=== PATIENT | male | born 1990 | race Caucasian/White ===

== ENCOUNTER 2016-09-17 03:34 | Emergency (ER) | payer OTHER ==
[~2016-09-17] VITALS: Ht 175.3 cm; Wt 84.0 kg
[2016-09-17 03:38] VITALS: Ht 175.3 cm; Wt 84.0 kg
[2016-09-17] MEDS ORDERED: CEFTRIAXONE 250 MG INJ IM ONE (04:30)
[2016-09-17 05:03] LABS: ADD UMIC NO; URINE BILIRUBIN (Dip) NEGATIVE (NEGATIVE); URINE BLOOD (Dip) NEGATIVE (NEGATIVE); URINE COLOR LT. YELLOW (YELLOW); URINE GLUCOSE (Dip) NEGATIVE (NEGATIVE); URINE KETONES (Dip) NEGATIVE (NEGATIVE); URINE LEUKOCYTE ESTERASE (Dip) NEGATIVE (NEGATIVE); URINE NITRITE (Dip) NEGATIVE (NEGATIVE); URINE TOTAL PROTEIN (Dip) NEGATIVE (NEGATIVE); URINE UROBILINOGEN (Dip) 0.2 E.U./dL (0.1-1.0)
[2016-09-17] MEDS ORDERED: AMO500 PO (05:19)
--- NOTE | 2016-09-17 05:27 | ERD ---
ER Documentation Chief Complaint Date/Time DATE: 09/17/16 TIME: 05:22 Chief Complaint throat pain/painful swallowing x 2 days HPI 25-year-old male with a past medical history of mono presents to the ED complaining of sore throat that started 2 days ago. Reports that it is painful to swallow however he still able to swallow and tolerate oral intake. States that he has been gargling water and baking soda. States that the pain is sharp and rates it a 10 out of 10. Reports that he has been taking Advil 800 mg with relief of his pain. Denies any sick contacts. Reports that he feels like he has a fever. Denies any abdominal pain, nausea, vomiting, diarrhea, rashes, shortness of breath, wheezing, cough. States that he is also sexually active and has had unprotected intercourse and is concerned about STDs. States that he has one sexual partner. Reports that he feels like it major when he urinates. Denies any urgency, frequency, flank pain, hematuria. ROS All systems reviewed and are negative except as per history of present illness. Medications Home Meds Active Scripts Amoxicillin* (Amoxicillin*) 500 Mg Cap, 500 MG PO TID for 10 Days, CAP Prov:QUINTON RAYMUNDO PA-C 09/17/16 Allergies Allergies: Coded Allergies: No Known Drug Allergies (Verified Allergy, Unknown, 09/17/16) PMhx/Soc Medical and Surgical Hx: pt denies Medical Hx History of Surgery: Yes (L KNEE 2007) Anesthesia Reaction: No Hx Neurological Disorder: No Hx Respiratory Disorders: No Hx Cardiac Disorders: No Hx Psychiatric Problems: No Hx Miscellaneous Medical Probl: No Hx Alcohol Use: Yes Hx Substance Use: Yes (marijuana) Hx Tobacco Use: No Smoking Status: Never smoker Physical Exam Vitals Vital Signs Date Time Temp Pulse Resp B/P Pulse Ox O2 Delivery O2 Flow Rate FiO2 09/17/16 03:38 97.0 91 20 127/72 100 Physical Exam Const: Fly-wgy-ydfylyyks, well-nourished. In no acute distress. Head: Atraumatic, normocephalic Eyes: Normal Conjunctiva without injection. No purulent discharge. ENT: Normal external ear, nose. Moist oropharynx without tonsillar exudates. Non -erythematous pharynx. Uvula midline. No drooling. No trismus. Neck: No cervical midline tenderness. Full range of motion. No meningismus. No cervical lymphadenopathy. No JVD. Resp: Clear to auscultation bilaterally. No wheezing, rhonchi, rales, or crackles. No accessory muscle use. No retractions. Cardio: Regular rate and rhythm. No murmurs, rubs or gallops. Abd: Soft, non distended. Normal bowel sounds. No palpable masses. No rebound tenderness. No guarding. Negative McBurney's point. Negative psoas sign. Negative obturator sign. : Uncircumcised penis. No paraphimosis. No phimosis. No hernias. No tenderness to palpation of the scrotum. No erythema, edema, penile discharge noted. Skin: No petechiae or rashes Back: No midline tenderness. No CVA tenderness. Ext: No cyanosis, or edema. Neur: Awake and alert. Normal gait. Normal coordination. Psych: Normal Mood and Affect Results 24 hrs Laboratory Tests Test 09/17/16 04:15 Urine Color LT. YELLOW Urine Clarity CLEAR Urine pH 6.0 Urine Specific [place] 1.015 Urine Ketones NEGATIVE Urine Nitrite NEGATIVE Urine Bilirubin NEGATIVE Urine Urobilinogen 0.2 E.U./dL Urine Leukocyte Esterase NEGATIVE Urine Hemoglobin NEGATIVE Urine Glucose NEGATIVE% Urine Total Protein NEGATIVE Current Medications Medications (Trade) Dose Ordered Sig/Arnaud Route PRN Reason Start Time Stop Time Status Last Admin Dose Admin Ceftriaxone Sodium (Rocephin) 250 mg ONCE ONCE IM 09/17/16 04:30 09/17/16 04:31 DC 09/17/16 04:23 Azithromycin (Zithromax) 1,000 mg ONCE ONCE PO 09/17/16 05:30 09/17/16 05:31 09/17/16 05:15 Procedures/MDM This is a 25-year-old male with a past medical history of mononucleosis presents to the ED complaining of sore throat that started 2 days ago. Patient is afebrile and nontoxic-appearing. Patient has normal vital signs. Patient's physical exam is consistent with presumed strep pharyngitis. Based on [employer]'s Criteria, patient has reported fever at home, tonsillar exudates, no cough. Patient is appropriate for outpatient antibiotics. Patient's physical exam include lungs which were clear to auscultation and a normal pulse oximetry. Bilateral ears pearly marquez. No tenderness to palpation of tragus or mastoid. Low suspicion for mastoiditis, otitis externa, otitis media. Patient is speaking in full sentences. There is a low suspicion for pneumonia, epiglottitis , croup, sinusitis, peritonsillar abscess, hands foot mouth disease, Jose's angina, retropharyngeal abscess, meningitis, sepsis, acute abdomen or other emergent conditions. Patient was also concerned about mono, I instructed patient that he should avoid playing sports for the next 4-6 weeks to avoid traumatic splenic rupture. A urinalysis, chlamydia and gonorrhea test, urine culture was also ordered to further evaluate patient. Patient was treated here in the ED with ceftriaxone 250 mg IM, Zithromax 1 g here in the ED for phylactic gonorrhea and Chlamydia. Urinalysis showed no leukocyte esterase, hematuria, nitrite. Low suspicion for urinary tract infection, pyelonephritis, appendicitis, testicular torsion, bowel obstruction, or other emergent conditions. Discharge medications: Amoxicillin Follow up with primary care physician in 1-2 days. Instructed patient to return to the ED sooner for any worsening symptoms. Patient's questions were answered. Patient understood and agreed with discharge plan. Patient discharged stable. Departure Diagnosis: Primary Impression: Pharyngitis Pharyngitis/tonsillitis etiology: unspecified etiology Qualified Code: J02.9 - Pharyngitis, unspecified etiology Additional Impression: Exposure to STD Condition: Stable Patient Instructions: If You Think You Have an STD, Pharyngitis, Strep ( Presumed) Referrals: [facility] YOU HAVE RECEIVED A MEDICAL SCREENING EXAM AND THE RESULTS INDICATE THAT YOU DO NOT HAVE A CONDITION THAT REQUIRES URGENT TREATMENT IN THE EMERGENCY DEPARTMENT. FURTHER EVALUATION AND TREATMENT OF YOUR CONDITION CAN WAIT UNTIL YOU ARE SEEN IN YOUR DOCTORS OFFICE WITHIN THE NEXT 1-2 DAYS. IT IS YOUR RESPONSIBILITY TO MAKE AN APPOINTMENT FOR FOLOW-UP CARE. IF YOU HAVE A PRIMARY DOCTOR --you should call your primary doctor and schedule an appointment IF YOU DO NOT HAVE A PRIMARY DOCTOR YOU CAN CALL OUR PHYSICIAN REFERRAL HOTLINE AT IF YOU CAN NOT AFFORD TO SEE A PHYSICIAN YOU CAN CHOSE FROM THE FOLLOWING [facility] [address] [facility]. [facility] [address] [facility]. [facility] [address] [facility] [facility] [address] [facility]. [facility] [address] [facility]. [facility]. [address] [facility]. [facility] YOU HAVE RECEIVED A MEDICAL SCREENING EXAM AND THE RESULTS INDICATE THAT YOU DO NOT HAVE A CONDITION THAT REQUIRES URGENT TREATMENT IN THE EMERGENCY DEPARTMENT. FURTHER EVALUATION AND TREATMENT OF YOUR CONDITION CAN WAIT UNTIL YOU ARE SEEN IN YOUR DOCTORS OFFICE WITHIN THE NEXT 1-2 DAYS. IT IS YOUR RESPONSIBILITY TO MAKE AN APPOINTMENT FOR FOLOW-UP CARE. IF YOU HAVE A PRIMARY DOCTOR --you should call your primary doctor and schedule and appointment IF YOU DO NOT HAVE A PRIMARY DOCTOR YOU CAN CALL OUR PHYSICIAN REFERRAL HOTLINE AT . IF YOU CAN NOT AFFORD TO SEE A PHYSICIAN YOU CAN CHOSE FROM THE FOLLOWING [facility] INSTITUTIONS: [facility] [address] [place] [address] [facility] [address] [place] [address] [facility] + [facility] [address] [place] [address] [facility] URGENT CARE/SPECIALTIES Additional Instructions: FOLLOW UP WITH YOUR PRIMARY CARE PHYSICIAN in 1-2 days. Return to this facility if you are not improving as expected. QUINTON RAYMUNDO PA-C Sep 17, 2016 05:27
[2016-09-17] MEDS ORDERED: AZITHROMYCIN 250 MG TAB PO ONE (05:30)
[2016-09-17 05:31] VITALS: BP 122/74; PULSE 90; RESP 20; TEMP 97
== END 2016-09-17 05:31 | disposition home or self-care (01) ==
LOC: FTE 03:34
DX: J02.9 Acute pharyngitis, unspecified (principal); R50.9 Fever, unspecified; Z20.2 Contact with and (suspected) exposure to infections with a predominantly sexual mode of transmission
CPT/HCPCS: 81003; 87086; 87591; 96372; J0696; Z7502; Z7610

== ENCOUNTER 2017-01-14 13:32 | Emergency (ER) | payer OTHER ==
[~2017-01-14] VITALS: Ht 177.8 cm; Wt 85.5 kg
[~2017-01-14 13:32] MED LIST: AMO500 PO
[2017-01-14 13:53] VITALS: Ht 177.8 cm; Wt 85.5 kg
[2017-01-14] MEDS ORDERED: IBUPROFEN 600 MG TAB PO ONE (16:30)
--- NOTE | 2017-01-14 16:47 | RADRPT ---
PROCEDURE: US Lower extremity Venous. CLINICAL INDICATION: Right leg edema TECHNIQUE: Multiple sonographic images of the right lower extremity deep venous system was obtaine d utilizing grayscale, color-flow, compressive sonography and doppler imaging with augmentation. Th e images were reviewed on a PACS workstation. COMPARISON: None. FINDINGS: There is normal compressibility and flow within the right common femoral, femoral, posterior tibial, peroneal and popliteal veins. RPTAT: AA IMPRESSION: No sonographic evidence for deep venous thrombosis. .Jorge Gonsalez MD, MD Date Time Electronically viewed and signed by .Jorge Gonsalez MD, MD on 01/14/2017 16:47 .S/
--- NOTE | 2017-01-14 17:08 | ERD ---
ER Documentation Chief Complaint Date/Time DATE: 01/14/17 TIME: 17:04 Chief Complaint r leg pain hit a gymnastic bar 2 days ago, swelling and pain HPI This patient is a 26-year-old male presenting to the emergency department with complaints of right lower extremity pain which began suddenly yesterday after injury. The patient states she was doing gymnastics and hit his right lower extremity on a bar. Since then he has noticed increased swelling and bruising. He reports mild pain. He denies other injuries or symptoms currently. ROS All systems reviewed and are negative except as per history of present illness. Medications Home Meds Active Scripts Naproxen* (Naprosyn*) 500 Mg Tablet, 500 MG PO BID Y for PAIN AND/OR INFLAMMATION, #30 TAB Prov:ROSALINO FRANCOIS PA-C 01/14/17 Amoxicillin* (Amoxicillin*) 500 Mg Cap, 500 MG PO TID for 10 Days, CAP Prov:QUINTON RAYMUNDO PA-C 09/17/16 Allergies Allergies: Coded Allergies: No Known Drug Allergies (Verified Allergy, Unknown, 01/14/17) PMhx/Soc Medical and Surgical Hx: pt denies Medical Hx History of Surgery: Yes (L KNEE 2007) Anesthesia Reaction: No Hx Neurological Disorder: No Hx Respiratory Disorders: No Hx Cardiac Disorders: No Hx Psychiatric Problems: No Hx Miscellaneous Medical Probl: No Hx Alcohol Use: Yes (socially) Hx Substance Use: Yes (marijuana) Hx Tobacco Use: No Physical Exam Vitals Vital Signs Date Time Temp Pulse Resp B/P Pulse Ox O2 Delivery O2 Flow Rate FiO2 01/14/17 17:47 98.2 01/14/17 13:53 97.4 87 18 134/69 99 Physical Exam Const: Nontoxic, well-appearing male in no acute distress. Head: Atraumatic Eyes: Normal Conjunctiva ENT: Normal External Ears, Nose and Mouth. Neck: Full range of motion..~ No meningismus. Resp: Clear to auscultation bilaterally Cardio: Regular rate and rhythm, no murmurs Abd: Soft, non tender, non distended. Normal bowel sounds Skin: No petechiae or rashes Back: No midline or flank tenderness Ext: There is ecchymosis and edema noted to the right ankle. There is some tenderness palpation of the lateral portion of the right lower extremity just proximal to the right ankle. There is no calf tenderness to palpation. Neur: Awake and alert Psych: Normal Mood and Affect Results 24 hrs Current Medications Medications (Trade) Dose Ordered Sig/Arnaud Route PRN Reason Start Time Stop Time Status Last Admin Dose Admin Ibuprofen (Motrin) 600 mg ONCE ONCE PO 01/14/17 16:30 01/14/17 16:31 DC 01/14/17 17:06 [place] [address] Radiology Main Line: [phone] DIAGNOSTIC IMAGING REPORT Patient: ROSALINO VILLEGAS : 1990 Age: 26 Sex: M MR #: [id number] DOS: 01/14/17 0000 Ordering MD: ROSALINO FRANCOIS PA-C Location: [facility] Room/Bed: PROCEDURE: US Lower extremity Venous. CLINICAL INDICATION: Right leg edema TECHNIQUE: Multiple sonographic images of the right lower extremity deep venous system was obtained utilizing grayscale, color-flow, compressive sonography and doppler imaging with augmentation. The images were reviewed on a PACS workstation. COMPARISON: None. FINDINGS: There is normal compressibility and flow within the right common femoral, femoral, posterior tibial, peroneal and popliteal veins. RPTAT: AA IMPRESSION: No sonographic evidence for deep venous thrombosis. .Jorge Gonsalez MD, MD Date Time Electronically viewed and signed by .Jorge Gonsalez MD, MD on 01/14/2017 16: 47 .S/ CC: ROSALINO FRANCOIS PA-C 01/14/2017 6:00:04 PM Joce Martinez MD PROCEDURE: XR right tibia and fibula. CLINICAL INDICATION: Pain in the right lower leg. TECHNIQUE: 2 views of the right tibia and fibula. Frontal and lateral. COMPARISON: None available. FINDINGS: There is no acute fracture, dislocation, or other osteoarticular abnormality. The alignment is normal and the ankle mortise is intact. There is edema within the soft tissues overlying the right lateral malleolus. No radiopaque foreign body is identified. IMPRESSION: 1. Edema within the soft tissues overlying the right lateral malleolus with no underlying acute fracture or dislocation. Ligamentous injury is not excluded and can be further evaluated with MRI. 2. Otherwise unremarkable images of the right tibia and fibula. RPTAT: QQ PROCEDURE: XR Ankle. CLINICAL INDICATION: Pain at the lateral ankle joint. TECHNIQUE: 3 views of the right ankle were performed. COMPARISON: None available. FINDINGS: There is no acute fracture, dislocation, or other osteoarticular abnormality. The alignment is normal and the ankle mortise is intact. There is edema within the soft tissues overlying the lateral malleolus. No radiopaque foreign body is identified. IMPRESSION: Edema within the soft tissues overlying the lateral malleolus with no underlying acute fracture or dislocation. Ligamentous injury is not excluded and can be further evaluated with MRI. Procedures/MDM This patient is a 26-year-old male presenting to the emergency department with complaints of right lower extremity pain after injury on a gymnastics bar yesterday. Exam shows some ecchymosis and edema to the right ankle. There is some tenderness to palpation and limited range of motion of the right ankle. X- ray showed soft tissue swelling but no fracture. Venous Doppler of the right lower extremity showed no signs of deep venous thrombosis. All imaging studies were interpreted by the radiologist. The patient was informed of the results and he was told that ligamental or tendon injury is not excluded and that he would need a follow-up as an outpatient in case MRI is indicated. The patient had crutches and he had proper training on a previously. Kirit wrap applied and the patient was neurovascularly intact post application. Strict ER return precautions were discussed and close follow-up with primary care physician was advised. Departure Diagnosis: Primary Impression: Injury of right leg Encounter type: initial encounter Qualified Code: S89.91XA - Injury of right leg, initial encounter Condition: Fair Referrals: [facility] ROSALINO FRANCOIS PA-C Jan 14, 2017 17:08
--- NOTE | 2017-01-14 17:11 | RADRPT ---
AMENDMENT: 01/14/2017 6:00:04 PM Joce Martinez MD PROCEDURE: XR right tibia and fibula. CLINICAL INDICATION: Pain in the right lower leg. TECHNIQUE: 2 views of the right tibia and fibula. Frontal and lateral. COMPARISON: None available. FINDINGS: There is no acute fracture, dislocation, or other osteoarticular abnormality. The alignment is brittany l and the ankle mortise is intact. There is edema within the soft tissues overlying the right latera l malleolus. No radiopaque foreign body is identified. IMPRESSION: 1. Edema within the soft tissues overlying the right lateral malleolus with no underlying acute fra cture or dislocation. Ligamentous injury is not excluded and can be further evaluated with MRI. 2. Otherwise unremarkable images of the right tibia and fibula. RPTAT: QQ Patient Name: NELLY JERRY Report Date: 14-Jan-2017 17:11.00 Patient Date: 1990 Report Status: S Accession No.: [id number] Reason for study: #reason_for_study# [place] [address] Radiology Main Line: [phone] DIAGNOSTIC IMAGING REPORT Patient: ROSALINO VILLEGAS : 1990 Age: 26 Sex: M MR #: [id number] DOS: 01/14/17 0000 Ordering MD: ROSALINO FRANCOIS PA-C Location: [facility] Room/Bed: PROCEDURE: XR Ankle. CLINICAL INDICATION: Pain at the lateral ankle joint. TECHNIQUE: 3 views of the right ankle were performed. COMPARISON: None available. FINDINGS: There is no acute fracture, dislocation, or other osteoarticular abnormality. The alignment is normal and the ankle mortise is intact. There is edema within the soft tissues overlying the lateral malleolus. No radiopaque foreign body is identified. IMPRESSION: Edema within the soft tissues overlying the lateral malleolus with no underlying acute fracture or dislocation. Ligamentous injury is not excluded and can be further evaluated with MRI. RPTAT: GG .Franck Lugo MD, Date Time Electronically viewed and signed by .Franck Lugo MD, MD on 01/14/2017 17:11 .P/ CC: ROSALINO FRANCOIS PA-C Radiologist : .Joce Martinez MD, Date Time Electronically viewed and signed by .Joce Martinez MD, on 01/14/2017 18:00 .R/
[2017-01-14] MEDS ORDERED: NAPR-260 PO (17:18)
--- NOTE | 2017-01-14 17:34 | RADRPT ---
PROCEDURE: XR Ankle. CLINICAL INDICATION: Pain at the lateral ankle joint. TECHNIQUE: 3 views of the right ankle were performed. COMPARISON: None available. FINDINGS: There is no acute fracture, dislocation, or other osteoarticular abnormality. The alignment is norm al and the ankle mortise is intact. There is edema within the soft tissues overlying the lateral ma lleolus. No radiopaque foreign body is identified. IMPRESSION: Edema within the soft tissues overlying the lateral malleolus with no underlying acute fracture or d islocation. Ligamentous injury is not excluded and can be further evaluated with MRI. RPTAT: GG .Franck Lugo MD, MD Date Time Electronically viewed and signed by .Franck Lugo MD, on 01/14/2017 17:11 .P/
[2017-01-14 17:47] VITALS: TEMP 98.2
== END 2017-01-14 17:49 | disposition home or self-care (01) ==
LOC: FTE 13:32
DX: S89.91XA Unspecified injury of right lower leg, initial encounter (principal); W22.8XXA Striking against or struck by other objects, initial encounter; Y92.9 Unspecified place or not applicable
CPT/HCPCS: 73590; 73610; 93971; Z7502; Z7610

== ENCOUNTER 2017-02-12 10:58 | Inpatient (IN) | payer OTHER ==
[~2017-02-12] VITALS: Ht 170.2 cm; Wt 86.0 kg
[~2017-02-12 10:58] MED LIST changes: +NAPR-260 PO
[2017-02-12 11:03] VITALS: Ht 170.2 cm; Wt 86.0 kg
[2017-02-12] MEDS ORDERED: KETOROLAC 30 MG INJ IV STA (11:50)
--- NOTE | 2017-02-12 12:13 | RADRPT ---
PROCEDURE: Chest Radiograph. CLINICAL INDICATION: Chest pain TECHNIQUE: Single frontal chest radiograph. COMPARISON: None available FINDINGS: The cardiomediastinal silhouette is within normal limits. No infiltrate or effusion is seen. Th e bones are intact. IMPRESSION: 1. Unremarkable chest radiograph. RPTAT: KK .James Dias MD, MD Date Time Electronically viewed and signed by .James Dias MD, on 02/12/2017 12:13 .B/
[2017-02-12 12:37] LABS: BASOPHILS % 0.5 % (0.0-2.0); EOSINOPHILS # 0.1 10^3/ul (0.0-0.5); EOSINOPHILS % 1.4 % (0.0-7.0); HEMATOCRIT 43.1 % (42.0-52.0); HEMOGLOBIN 14.6 g/dl (14.0-18.0); LYMPHOCYTES # 1.5 10^3/ul (0.8-2.9); LYMPHOCYTES % 26.2 % (15.0-51.0); MEAN CORPUSCULAR HGB CONC 33.9 g/dl (32.0-37.0); MEAN CORPUSCULAR VOLUME 88.5 fl (82.0-101.0); MEAN PLATELET VOLUME 10.8 fl (7.4-10.4); MONOCYTE # 0.6 10^3/ul (0.3-0.9); MONOCYTES % 10.7 % (0.0-11.0); NEUTROPHILS % 60.8 % (39.0-77.0); PLATELET COUNT 244 10^3/UL (140-415); RED BLOOD COUNT 4.87 10^6/ul (4.70-6.10); RED CELL DISTRIBUTION WIDTH 12.3 % (11.5-14.5); WHITE BLOOD COUNT 5.5 10^3/ul (4.8-10.8)
[2017-02-12 12:52] LABS: INR 1.02; PROTIME 13.4 Sec (12.2-14.2)
[2017-02-12 12:53] LABS: PARTIAL THROMBOPLASTIN TIME 31.1 Sec (25.0-35.0)
[2017-02-12 12:57] LABS: ALBUMIN 4.4 g/dl (3.3-4.9); ALBUMIN/GLOBULIN RATIO 1.22; C-REACTIVE PROTEIN 5.5 mg/dl (0.0-0.9); CALCIUM 9.7 mg/dl (8.4-10.2); CREATININE 1.12 mg/dl (0.61-1.24); POTASSIUM 4.2 mmol/L (3.5-5.1)
[2017-02-12 13:54] LABS: TROPONIN-I 8.72 ng/ml (0.00-0.12)
--- NOTE | 2017-02-12 14:02 | ERA ---
ER Documentation Chief Complaint Date/Time DATE: 02/12/17 TIME: 14:02 Chief Complaint Chest pain HPI The patient is a 36-year-old male, presenting to the ER because subsegmental chest pain, radiating to bilateral arm for 1 day, associated with nausea but no vomiting. The symptoms started about 11 AM yesterday after breakfast, 12/31 and resolved by itself. The chest pain recurred today about 9 AM after breakfast, 04/02, no aggravating or relieving factor. He recently flew back from [place] yesterday, had fever/sore throat/ headache for the last 3 days and currently on antibiotic amoxicillin. He was also treated for gonorrhea about 10 days ago, he does not smoke, drinks socially, denies illicit drug Past medical/surgical history: None ROS All systems reviewed and are negative except as per history of present illness. Medications Home Meds Active Scripts Naproxen* (Naprosyn*) 500 Mg Tablet, 500 MG PO BID Y for PAIN AND/OR INFLAMMATION, #30 TAB Prov:ROSALINO FRANCOIS PA-C 01/14/17 Amoxicillin* (Amoxicillin*) 500 Mg Cap, 500 MG PO TID for 10 Days, CAP Prov:QUINTON RAYMUNDO PA-C 09/17/16 Reported Medications Ibuprofen* (Ibuprofen*) 800 Mg Tab, 800 MG PO DAILY Y for PAIN, TAB 02/12/17 Allergies Allergies: Coded Allergies: No Known Drug Allergies (Verified Allergy, Unknown, 02/12/17) PMhx/Soc History of Surgery: Yes (L KNEE 2007) Anesthesia Reaction: No Hx Neurological Disorder: No Hx Respiratory Disorders: No Hx Cardiac Disorders: No Hx Psychiatric Problems: No Hx Miscellaneous Medical Probl: No Hx Alcohol Use: Yes (socially) Hx Substance Use: Yes (marijuana) Hx Tobacco Use: No Physical Exam Vitals Vital Signs Date Time Temp Pulse Resp B/P Pulse Ox O2 Delivery O2 Flow Rate FiO2 02/12/17 17:14 97.9 74 20 114/78 98 Room Air 02/12/17 15:41 69 20 117/71 100 Room Air 02/12/17 11:03 98.1 68 18 122/79 99 Physical Exam Const: No acute distress. Head: Atraumatic. Eyes: Normal Conjunctiva. ENT: Normal External Ears, Nose and Mouth. Neck: Full range of motion. No meningismus. Resp: Clear to auscultation bilaterally. Cardio: Regular rate and rhythm. Abd: Soft, non distended, normal bowel sounds, non tender. Skin: No petechiae or rashes. Back: No midline or flank tenderness. Ext: No cyanosis, or edema. Neur: Awake and alert. No focal deficit Psych: Normal Mood and Affect. Result Diagram: 02/12/17 1220 02/12/17 1220 Results 24 hrs Laboratory Tests Test 02/12/17 12:20 02/12/17 14:46 White Blood Count 5.510^3/ul Red Blood Count 4.8710^6/ul Hemoglobin 14.6g/dl Hematocrit 43.1% Mean Corpuscular Volume 88.5fl Mean Corpuscular Hemoglobin 30.0pg Mean Corpuscular Hemoglobin Concent 33.9g/dl Red Cell Distribution Width 12.3% Platelet Count 15713^3/UL Mean Platelet Volume 10.8fl Neutrophils % 60.8% Lymphocytes % 26.2% Monocytes % 10.7% Eosinophils % 1.4% Basophils % 0.5% Nucleated Red Blood Cells % 0.0/100WBC Neutrophils # (Manual) 310^3/ul Lymphocytes # 1.510^3/ul Monocytes # 0.610^3/ul Eosinophils # 0.110^3/ul Basophils # 0.010^3/ul Nucleated Red Blood Cells # 0.010^3/ul Erythrocyte Sedimentation Rate 30mm/Hr Prothrombin Time 13.4Sec Prothrombin Time Ratio 1.0 INR International Normalized Ratio 1.02 Activated Partial Thromboplast Time 31.1Sec Sodium Level 142mmol/L Potassium Level 4.2mmol/L Chloride Level 102mmol/L Carbon Dioxide Level 28mmol/L Anion Gap 16 Blood Urea Nitrogen 14mg/dl Creatinine 1.12mg/dl Glucose Level 96mg/dl Calcium Level 9.7mg/dl Total Bilirubin 1.0mg/dl Direct Bilirubin 0.00mg/dl Indirect Bilirubin 1.0mg/dl Aspartate Amino Transf (AST/SGOT) 78IU/L Alanine Aminotransferase (ALT/SGPT) 59IU/L Alkaline Phosphatase 64IU/L Creatine Kinase 517IU/L Creatine Kinase Index 10.3 Creatinine Kinase MB (Mass) 53.00ng/ml Troponin I 8.720ng/ml C-Reactive Protein 5.5mg/dl Total Protein 8.0g/dl Albumin 4.4g/dl Globulin 3.60g/dl Albumin/Globulin Ratio 1.22 Urine Color YELLOW Urine Clarity CLEAR Urine pH 6.0 Urine Specific [place] 1.009 Urine Ketones NEGATIVEmg/dL Urine Nitrite NEGATIVEmg/dL Urine Bilirubin NEGATIVEmg/dL Urine Urobilinogen NEGATIVEmg/dL Urine Leukocyte Esterase NEGATIVELeu/ul Urine Hemoglobin NEGATIVEmg/dL Urine Glucose NEGATIVEmg/dL Urine Total Protein NEGATIVEmg/dl Urine Opiates Screen Negative Urine Barbiturates Negative Urine Amphetamines Screen Negative Urine Benzodiazepines Screen Negative Urine Cocaine Screen Negative Urine Cannabinoids Negative Current Medications Medications (Trade) Dose Ordered Sig/Arnaud Route PRN Reason Start Time Stop Time Status Last Admin Dose Admin Ketorolac Tromethamine (Toradol) 30 mg ONCE STAT IV 02/12/17 11:50 02/12/17 11:53 DC 02/12/17 12:21 Aspirin (Aspirin) 325 mg ONCE ONCE PO 02/12/17 14:30 02/12/17 14:31 DC 02/12/17 14:32 Amoxicillin (Amoxicillin) 500 mg TID PO 02/12/17 21:00 02/12/17 21:00 DC Naproxen (Naprosyn) 500 mg BID PRN PO PAIN AND/OR INFLAMMATION 02/12/17 15:00 IV Flush (NS 3 ml) 3 ml PER PROTOCOL IV 02/12/17 15:00 Ondansetron HCl (Zofran Inj) 4 mg Q6H PRN IV NAUSEA AND/OR VOMITING 02/12/17 15:00 Aspirin (Aspirin) 81 mg DAILY PO 02/13/17 09:00 Nitroglycerin (Nitroglycerin (Sl Tab) 0.4 Mg) 1 tab Q5M PRN SL CHEST PAIN 02/12/17 15:00 Acetaminophen (Tylenol Tab) 650 mg Q6H PRN PO PAIN LEVEL 1-3 OR FEVER 02/12/17 15:00 Acetaminophen/ Hydrocodone Bitart ([place] (5/325)) 1 tab Q6H PRN PO PAIN LEVEL 4-6 02/12/17 15:00 Acetaminophen/ Hydrocodone Bitart ([place] (5/325)) 2 tab Q6H PRN PO PAIN LEVEL 7-10 02/12/17 15:00 Morphine Sulfate (morphine) 2 mg Q4H PRN IV PAIN LEVEL 7-10 02/12/17 15:00 Docusate Sodium (Colace) 100 mg Q12H PRN PO CONSTIPATION 02/12/17 15:00 Magnesium Hydroxide (Milk Of Mag) 30 ml DAILY PRN PO CONSTIPATION 02/12/17 15:00 Bisacodyl (Dulcolax Supp) 10 mg DAILY PRN [place] CONSTIPATION 02/12/17 15:00 Famotidine (Pepcid) 20 mg Q12 PO 02/12/17 16:00 02/12/17 16:59 Enoxaparin Sodium 40 mg 40 mg Q24H SC 02/12/17 17:00 02/12/17 17:00 Sodium Chloride (NS) 1,000 ml @ 100 mls/hr Q10H IV 02/12/17 16:00 02/12/17 16:00 IV Flush 10 ml 10 ml STK-MED ONCE .ROUTE 02/12/17 15:12 02/12/17 15:13 DC 02/12/17 15:12 Sodium Chloride 100 ml @ ud STK-MED ONCE .ROUTE 02/12/17 15:12 02/12/17 15:13 DC 02/12/17 15:12 Iohexol (Omnipaque) 100 ml @ ud STK-MED ONCE .ROUTE 02/12/17 15:12 02/12/17 15:13 DC 02/12/17 15:12 Iohexol (Omnipaque 350mg/ ml) 50 ml STK-MED ONCE .ROUTE 02/12/17 15:12 02/12/17 15:13 DC 02/12/17 15:12 Amoxicillin (Amoxicillin) 500 mg Q8 PO 02/12/17 16:00 02/12/17 16:59 Indomethacin (Indocin) 25 mg Q8 PO 02/12/17 22:00 Procedures/MDM EKG: At 11:01 PM read by emergency physician Rate/Rhythm: Normal Sinus Rhythm 66 beats/min QRS, ST, T-waves: No ST elevation, no T inversion, RSR prime in V1, diffuse ST elevation Impression: Abnormal EKG, probable acute pericarditis EKG: At 12:41 PM read by emergency physician Rate/Rhythm: Normal Sinus Rhythm 61 beats/min QRS, ST, T-waves: No ST elevation, no T inversion, RSR prime in V1, diffuse ST elevation Impression: Abnormal EKG, probable acute pericarditis [place] [id number] Radiology Main Line: [phone] DIAGNOSTIC IMAGING REPORT Patient: ROSALINO VILLEGAS : 1990 Age: 26 Sex: M MR #: [id number] DOS: 02/12/17 1150 Ordering MD: YNES KRUSE MD Location: [facility] Room/Bed: PROCEDURE: Chest Radiograph. CLINICAL INDICATION: Chest pain TECHNIQUE: Single frontal chest radiograph. COMPARISON: None available FINDINGS: The cardiomediastinal silhouette is within normal limits. No infiltrate or effusion is seen. The bones are intact. IMPRESSION: 1. Unremarkable chest radiograph. RPTAT: KK .James Dias MD, MD Date Time Electronically viewed and signed by .James Dias MD, MD on 2016 12:13 .B/ CC: YNES KRUSE MD [place] [address] Radiology Main Line: [phone] DIAGNOSTIC IMAGING REPORT Patient: ROSALINO VILLEGAS : 1990 Age: 26 Sex: M MR #: [id number] DOS: 02/12/17 1417 Ordering MD: TONI OLSON MD Location: E/R Room/Bed: PROCEDURE: CTA Chest CLINICAL INDICATION: Chest and arm pain TECHNIQUE: CTA of the chest was performed following the uncomplicated IV administration of 110 cc Omnipaque 350. Coronal and sagittal images were reconstructed from the axial data set. 3-D volumetric rendered post processing was performed as well. One or more of the following dose reduction techniques were used: automated exposure control, adjustment of the mA and/or kV according to patient size, use of iterative reconstruction technique. CTDI = 15.81 mGy. DLP = 711.07 mGy-cm. COMPARISON: No prior studies are available for comparison. FINDINGS: No filling defect is present to suggest pulmonary embolism. There is no evidence for pulmonary arterial hypertension. There is mild pulmonary emphysema. Bronchial wall thickening and ectasia are seen, suggestive of chronic bronchitis. No acute infiltrate, pleural effusion, pulmonary edema or pneumothorax is identified. No pulmonary nodule or mass is identified. The heart size is normal without pericardial effusion. There is no thoracic aortic aneurysm or dissection. No mediastinal, hilar, axillary or supraclavicular lymphadenopathy is identified. Visualized portions of the upper abdomen demonstrate no acute abnormality. The osseous structures are unremarkable. No osteolytic or osteoblastic lesion is seen. IMPRESSION: 1. No pulmonary embolism is identified. There is no thoracic aortic aneurysm or dissection. 2. Mild pulmonary emphysema and findings of chronic bronchitis are noted. 3. No mass, lymphadenopathy, or focal acute infiltrate is seen. RPTAT: RR .Stephen Brice MD, MD Date Time Electronically viewed and signed by .Stephen Brice MD, MD on 02/12/2017 15: 37 .R/ CC: TONI OLSON MD MEDICAL MAKING DECISION: The patient is a 26-year-old male, presenting with acute chest pain with elevated troponin, most likely myocarditis versus pericarditis. He was treated with aspirin 325 mg p.o. The differential diagnoses considered include but are not limited to acute coronary syndrome, acute myocardial infarction, pericarditis, pulmonary embolism , aortic dissection, pneumonia, pleural effusion, pneumothorax, GERD, chest wall pain. Critical Care: Time: 35 minutes excluding all billable procedures. Treatments/Evaluations: Close monitoring and treatment of unstable vital signs, cardiorespiratory, and neurologic status, while maintaining tight balance of fluid, respiratory, and cardiac interventions. Departure Diagnosis: Primary Impression: Chest pain Condition: Stable Comments I discussed the findings with the patient. I discussed the patient with his physician Dr. aLo at 2:30 pm who was made aware of the lab, the treatment, the patient condition. The patient is admitted to [facility] TONI OLSON MD Feb 12, 2017 14:02
[2017-02-12] MEDS ORDERED: ASPIRIN 325 MG TAB PO ONE (14:30)
[2017-02-12] MEDS ORDERED: HYDROCODONE/APAP (5/325) TAB PO PRN (15:00)
[2017-02-12] MEDS ORDERED: NACL 0.9% 3 ML SYG IV SCH (15:00)
[2017-02-12] MEDS ORDERED: NITROGLYCERIN (SL) 0.4 MG TAB SL PRN (15:00)
[2017-02-12] MEDS ORDERED: MAGNESIUM HYDROXIDE 30ML CUP PO PRN (15:00)
[2017-02-12] MEDS ORDERED: BISACODYL 10 MG SUPP PR PRN (15:00)
[2017-02-12] MEDS ORDERED: DOCUSATE SODIUM 100 MG CAP PO PRN (15:00)
[2017-02-12] MEDS ORDERED: ONDANSETRON 4 MG INJ IV PRN (15:00)
[2017-02-12] MEDS ORDERED: ACETAMINOPHEN 325 MG TAB PO PRN (15:00)
[2017-02-12] MEDS ORDERED: morphine 2 MG INJ IV PRN (15:00)
[2017-02-12] MEDS ORDERED: NAPROXEN 500 MG TAB PO PRN (15:00)
[2017-02-12 15:11] LABS: CANNABINOIDS Negative (NEGATIVE)
[2017-02-12] MEDS ORDERED: IOHEXOL 350MG/ML 50 ML BTL ONE (15:12)
[2017-02-12] MEDS ORDERED: IOHEXOL 100 ML ONE (15:12)
[2017-02-12] MEDS ORDERED: SOD CHLORIDE 0.9% 100 ML ONE (15:12)
[2017-02-12 15:26] LABS: BARBITURATES Negative (NEGATIVE); BENZODIAZEPINES Negative (NEGATIVE); COCAINE Negative (NEGATIVE); OPIATES Negative (NEGATIVE)
--- NOTE | 2017-02-12 15:38 | RADRPT ---
PROCEDURE: CTA Chest CLINICAL INDICATION: Chest and arm pain TECHNIQUE: CTA of the chest was performed following the uncomplicated IV administration of 110 cc Omnipaque 350. Coronal and sagittal images were reconstructed from the axial data set. 3-D volumet dante rendered post processing was performed as well. One or more of the following dose reduction bere hniques were used: automated exposure control, adjustment of the mA and/or kV according to patient s ize, use of iterative reconstruction technique. CTDI = 15.81 mGy. DLP = 711.07 mGy-cm. COMPARISON: No prior studies are available for comparison. FINDINGS: No filling defect is present to suggest pulmonary embolism. There is no evidence for pulmonary guilherme rial hypertension. There is mild pulmonary emphysema. Bronchial wall thickening and ectasia are seen, suggestive of ch ronic bronchitis. No acute infiltrate, pleural effusion, pulmonary edema or pneumothorax is identif ied. No pulmonary nodule or mass is identified. The heart size is normal without pericardial effusion. There is no thoracic aortic aneurysm or diss ection. No mediastinal, hilar, axillary or supraclavicular lymphadenopathy is identified. Visualized portions of the upper abdomen demonstrate no acute abnormality. The osseous structures a re unremarkable. No osteolytic or osteoblastic lesion is seen. IMPRESSION: 1. No pulmonary embolism is identified. There is no thoracic aortic aneurysm or dissection. 2. Mild pulmonary emphysema and findings of chronic bronchitis are noted. 3. No mass, lymphadenopathy, or focal acute infiltrate is seen. RPTAT: RR .Stephen Brice MD, Date Time Electronically viewed and signed by .Stephen Brice MD, on 02/12/2017 15:37 .R/
[2017-02-12] MEDS ORDERED: IBUP800T25 PO (15:53)
[2017-02-12] MEDS: SOD CHLORIDE 0.9% 1,000 ML IV SCH (16:00)
--- NOTE | 2017-02-12 16:19 | HP ---
Date/Time of Note Date/Time of Note DATE: 02/12/17 TIME: 16:05 Assessment/Plan VTE Prophylaxis VTE Prophylaxis Intervention: LMWH Lines/Catheters IV [facility] Saline Lock Assessment/Plan Assessment/Plan 26-year-old male with: 1. Chest pain, elevated troponin in setting of sore throat and likely viral upper respiratory infection, still on antibiotics, resolved chills and fevers. Patient likely has pericarditis and or myocarditis, ESR is slightly elevated. EKG with diffuse ST changes Trending cardiac enzymes 2D echocardiogram ordered Cardiology consult ordered Continue current antibiotics and NSAIDs for pain control and anti-inflammation CTA chest only showing findings of bronchial inflammation, no pulmonary embolus or pericardial effusion 2. Sore throat, resolved, currently finishing a 10 day course of amoxicillin, he is on day 5 3. Recent diagnosis of gonorrhea, status post treatment 01/31. Prophylaxis: Lovenox for DVT prophylaxis, Pepcid for GI prophylaxis Disposition: Admit to telemetry, workup for pericarditis/myocarditis, cardiology consult pending HPI/ROS Admit Date/Time Admit Date/Time Hx of Present Illness Chief complaint: Chest pain History of presenting illness: This is a 26-year-old male, recently treated for sore throat and still on amoxicillin, also previous treatment for gonorrhea 2 the latest one being couple of weeks ago who presented to the emergency department with complaints of substernal chest pain for 2 days. Patient reports that over the past few months again he was treated for gonorrhea 2 the latest one was on 01/31. Last week he was in urgent care with sore throat, he reports that he had a strep test which was negative but was given amoxicillin 500 mg p.o. 3 times daily for 10 days. 2 days after her visit at the urgent care he flew out to [place] while on treatment with amoxicillin, this past therefore 3 days ago for the whole weekend, he was having chills fevers, generalized malaise and fatigue, myalgia and muscle cramping. These symptoms finally resolved this past Saturday therefore 2 days ago including the sore throat. However yesterday morning he had a 3 hour episode of chest pains substernal left-sided. It resolved and again recurrent this morning more severe, same location substernal left-sided. In the emergency department, he was given a dose of NSAIDs and also aspirin. His pain is resolved currently. As part of his workup and given his history had a CT angiogram of the chest which did not show any pulmonary embolus but shows signs of bronchitis or respiratory infection, he also had laboratory data including cardiac enzymes and his troponin came back at 8.7. Given his history and these findings likely he has myocarditis and or pericarditis. 2D echocardiogram is pending, cardiology has been consulted we will finish his amoxicillin course at this point. Will use NSAIDs primarily for chest pain and anti-inflammatory. He remains afebrile the rest of his laboratory data's are within normal. Patient also reports urinary frequency but according to him has been tested multiple times and no no signs of acute urinary tract infection just a recent treatment for gonorrhea. ROS Constitutional: no complaints Eyes: no complaints ENT: other (Resolved sore throat) Respiratory: no complaints Cardiovascular: chest pain Gastrointestinal: no complaints Genitourinary: other (Urinary frequency) Musculoskeletal: no complaints Skin: no complaints Neurologic: confusion Endocrine: no complaints PMH/Family/Social Past Medical History Status post treatment for gonorrhea 2 Multiple episodes of sore throat, latest episode seems to have resolved as of 48 hours Previous remote history of Mononucleosis Past Surgical History Status post left knee surgery in 2007 Family History Significant Family History: no pertinent family hx Social History Alcohol Use: rarely Smoking Status: Never smoker Drug Use: marijuana (Rarely, last use was 3 weeks ago) Exam/Review of Systems Vital Signs Vitals Vital Signs Date Time Temp Pulse Resp B/P Pulse Ox O2 Delivery O2 Flow Rate FiO2 02/12/17 15:41 69 20 117/71 100 Room Air 02/12/17 11:03 98.1 Exam Constitutional: alert, oriented, well developed Psych: no complaints Head: normocephalic Eyes: EOMI, nl conjunctiva ENMT: nl external ears & nose, nl lips & teeth, nl nasal mucosa & septum Respiratory: clear to auscultation Cardiovascular: nl pulses, regular rate and rhythm Gastrointestinal: non-tender, soft Musculoskeletal: nl extremities to inspection, nl gait and stance Extremities: normal pulses, other (No edema, clubbing or cyanosis) Neurological: FOOD TASTER II-XII intact, nl mental status, nl speech, nl strength Labs Result Diagram: 02/12/17 1220 02/12/17 1220 Medications Medications Current Medications Naproxen (Naprosyn) 500 mg BID PRN PO PAIN AND/OR INFLAMMATION; Start 02/12/17 at 15:00 Ondansetron HCl (Zofran Inj) 4 mg Q6H PRN IV NAUSEA AND/OR VOMITING; Start at 15:00 Aspirin (Aspirin) 81 mg DAILY PO ; Start 02/13/17 at 09:00 Nitroglycerin (Nitroglycerin (Sl Tab) 0.4 Mg) 1 tab Q5M PRN SL CHEST PAIN; Start 02/12/17 at 15:00 Acetaminophen (Tylenol Tab) 650 mg Q6H PRN PO PAIN LEVEL 1-3 OR FEVER; Start at 15:00 Acetaminophen/ Hydrocodone Bitart ([place] (5/325)) 1 tab Q6H PRN PO PAIN LEVEL 4 -6; Start 02/12/17 at 15:00 Acetaminophen/ Hydrocodone Bitart ([place] (5/325)) 2 tab Q6H PRN PO PAIN LEVEL 7 -10; Start 02/12/17 at 15:00 Morphine Sulfate (morphine) 2 mg Q4H PRN IV PAIN LEVEL 7-10; Start 02/12/17 at 15:00 Docusate Sodium (Colace) 100 mg Q12H PRN PO CONSTIPATION; Start 02/12/17 at 15: 00 Magnesium Hydroxide (Milk Of Mag) 30 ml DAILY PRN PO CONSTIPATION; Start at 15:00 Bisacodyl (Dulcolax Supp) 10 mg DAILY PRN [place] CONSTIPATION; Start 02/12/17 at 15 :00 Famotidine (Pepcid) 20 mg Q12 PO ; Start 02/12/17 at 16:00 Enoxaparin Sodium 40 mg 40 mg Q24H SC ; Start 02/12/17 at 17:00 Sodium Chloride (NS) 1,000 ml @ 100 mls/hr Q10H IV ; Start 02/12/17 at 16:00 Amoxicillin (Amoxicillin) 500 mg Q8 PO ; Start 02/12/17 at 16:00 Procedures Procedures PROCEDURE: CTA Chest CLINICAL INDICATION: Chest and arm pain TECHNIQUE: CTA of the chest was performed following the uncomplicated IV administration of 110 cc Omnipaque 350. Coronal and sagittal images were reconstructed from the axial data set. 3-D volumetric rendered post processing was performed as well. One or more of the following dose reduction techniques were used: automated exposure control, adjustment of the mA and/or kV according to patient size, use of iterative reconstruction technique. CTDI = 15.81 mGy. DLP = 711.07 mGy-cm. COMPARISON: No prior studies are available for comparison. FINDINGS: No filling defect is present to suggest pulmonary embolism. There is no evidence for pulmonary arterial hypertension. There is mild pulmonary emphysema. Bronchial wall thickening and ectasia are seen, suggestive of chronic bronchitis. No acute infiltrate, pleural effusion, pulmonary edema or pneumothorax is identified. No pulmonary nodule or mass is identified. The heart size is normal without pericardial effusion. There is no thoracic aortic aneurysm or dissection. No mediastinal, hilar, axillary or supraclavicular lymphadenopathy is identified. Visualized portions of the upper abdomen demonstrate no acute abnormality. The osseous structures are unremarkable. No osteolytic or osteoblastic lesion is seen. IMPRESSION: 1. No pulmonary embolism is identified. There is no thoracic aortic aneurysm or dissection. 2. Mild pulmonary emphysema and findings of chronic bronchitis are noted. 3. No mass, lymphadenopathy, or focal acute infiltrate is seen. RPTAT: RR .Stephen Brice MD, Date Time Electronically viewed and signed by .Stephen Brice MD, MD on 02/12/2017 15: 37 PROCEDURE: Chest Radiograph. CLINICAL INDICATION: Chest pain TECHNIQUE: Single frontal chest radiograph. COMPARISON: None available FINDINGS: The cardiomediastinal silhouette is within normal limits. No infiltrate or effusion is seen. The bones are intact. IMPRESSION: 1. Unremarkable chest radiograph. RPTAT: KK .James Dias MD, Date Time Electronically viewed and signed by .James Dias MD, on 2016 12:13 AMERICA XIE Feb 12, 2017 16:15
[2017-02-12 16:50] LABS: ADD UMIC NO; UR ASCORBIC ACID NEGATIVE (NEGATIVE); UR BILIRUBIN (Dip) NEGATIVE (NEGATIVE); UR BLOOD (Dip) NEGATIVE (NEGATIVE); UR CLARITY CLEAR (CLEAR); UR COLOR YELLOW (YELLOW); UR GLUCOSE (Dip) NEGATIVE (NEGATIVE); UR KETONES (Dip) NEGATIVE (NEGATIVE); UR LEUKOCYTE ESTERASE (Dip) NEGATIVE Leu/ul (NEGATIVE); UR NITRITE (Dip) NEGATIVE (NEGATIVE); UR SPECIFIC GRAVITY (Dip) 1.009 (1.003-1.030); UR TOTAL PROTEIN (Dip) NEGATIVE (NEGATIVE); UR UROBILINOGEN (Dip) NEGATIVE (NEGATIVE)
[2017-02-12] MEDS: FAMOTIDINE 20 MG TAB PO SCH (16:59)
[2017-02-12] MEDS: AMOXICILLIN 500 MG CAP PO SCH ×2 (16:59→23:12)
[2017-02-12] MEDS: ENOXAPARIN 40 MG/0.4 ML SYG SC SCH (17:00)
--- NOTE | 2017-02-12 17:27 | CONS ---
Date/Time of Note Date/Time of Note DATE: 02/12/17 TIME: 17:25 Assessment/Plan Assessment/Plan Additional Assessment/Plan Precoridal Chest pain - probable myocarditis +trops due to #1 s/p URI s/p Gonorrhea -rx indocin, no colchicine for now -monitor for arrythmias -2Decho Consultation Date/Type/Reason Admit Date/Time Hx of Present Illness History of presenting illness: This is a 26-year-old male, recently treated for sore throat and still on amoxicillin, also previous treatment for gonorrhea 2 the latest one being couple of weeks ago who presented to the emergency department with complaints of substernal chest pain for 2 days. Patient reports that over the past few months again he was treated for gonorrhea 2 the latest one was on 01/31. Last week he was in urgent care with sore throat, he reports that he had a strep test which was negative but was given amoxicillin 500 mg p.o. 3 times daily for 10 days. 2 days after her visit at the urgent care he flew out to [place] while on treatment with amoxicillin, this past therefore 3 days ago for the whole weekend, he was having chills fevers, generalized malaise and fatigue, myalgia and muscle cramping. These symptoms finally resolved this past Saturday therefore 2 days ago including the sore throat. However yesterday morning he had a 3 hour episode of chest pains substernal left-sided. It resolved and again recurrent this morning more severe, same location substernal left-sided. In the emergency department, he was given a dose of NSAIDs and also aspirin. His pain is resolved currently. As part of his workup and given his history had a CT angiogram of the chest which did not show any pulmonary embolus but shows signs of bronchitis or respiratory infection, he also had laboratory data including cardiac enzymes and his troponin came back at 8.7. Given his history and these findings likely he has myocarditis and or pericarditis. 2D echocardiogram is pending, cardiology has been consulted we will finish his amoxicillin course at this point. Will use NSAIDs primarily for chest pain and anti-inflammatory. He remains afebrile the rest of his laboratory data's are within normal. Patient also reports urinary frequency but according to him has been tested multiple times and no no signs of acute urinary tract infection just a recent treatment for gonorrhea. He has no cardiac hisotry, no exertional symptoms and had hours of chest pain with no exertional symtoms and no overt chf Eyes: no complaints ENT: other (Resolved sore throat) Respiratory: no complaints Cardiovascular: chest pain Gastrointestinal: no complaints Genitourinary: other (Urinary frequency) Musculoskeletal: no complaints Skin: no complaints Neurologic: confusion Psychological: no complaints Social History Alcohol Use: rarely Smoking Status: Never smoker Drug Use: marijuana (Rarely, last use was 3 weeks ago) Exam/Review of Systems Vital Signs Vitals Vital Signs Date Time Temp Pulse Resp B/P Pulse Ox O2 Delivery O2 Flow Rate FiO2 02/12/17 17:14 97.9 74 20 98 Room Air 02/12/17 15:41 117/71 Results Result Diagram: 02/12/17 1220 02/12/17 1220 Results 24 hrs Laboratory Tests Test 02/12/17 12:20 02/12/17 14:46 White Blood Count 5.5 Red Blood Count 4.87 Hemoglobin 14.6 Hematocrit 43.1 Mean Corpuscular Volume 88.5 Mean Corpuscular Hemoglobin 30.0 Mean Corpuscular Hemoglobin Concent 33.9 Red Cell Distribution Width 12.3 Platelet Count 244 Mean Platelet Volume 10.8 H Neutrophils % 60.8 Lymphocytes % 26.2 Monocytes % 10.7 Eosinophils % 1.4 Basophils % 0.5 Nucleated Red Blood Cells % 0.0 Neutrophils # (Manual) 3 Lymphocytes # 1.5 Monocytes # 0.6 Eosinophils # 0.1 Basophils # 0.0 Nucleated Red Blood Cells # 0.0 Erythrocyte Sedimentation Rate 30 H Prothrombin Time 13.4 Prothrombin Time Ratio 1.0 INR International Normalized Ratio 1.02 Activated Partial Thromboplast Time 31.1 Sodium Level 142 Potassium Level 4.2 Chloride Level 102 Carbon Dioxide Level 28 Anion Gap 16 Blood Urea Nitrogen 14 Creatinine 1.12 Glucose Level 96 Calcium Level 9.7 Total Bilirubin 1.0 Direct Bilirubin 0.00 Indirect Bilirubin 1.0 Aspartate Amino Transf (AST/SGOT) 78 H Alanine Aminotransferase (ALT/SGPT) 59 Alkaline Phosphatase 64 Creatine Kinase 517 H Creatine Kinase Index 10.3 Creatinine Kinase MB (Mass) 53.00 H Troponin I 8.720 *H C-Reactive Protein 5.5 H Total Protein 8.0 Albumin 4.4 Globulin 3.60 H Albumin/Globulin Ratio 1.22 Urine Color YELLOW Urine Clarity CLEAR Urine pH 6.0 Urine Specific [place] 1.009 Urine Ketones NEGATIVE Urine Nitrite NEGATIVE Urine Bilirubin NEGATIVE Urine Urobilinogen NEGATIVE Urine Leukocyte Esterase NEGATIVE Urine Hemoglobin NEGATIVE Urine Glucose NEGATIVE Urine Total Protein NEGATIVE Urine Opiates Screen Negative Urine Barbiturates Negative Urine Amphetamines Screen Negative Urine Benzodiazepines Screen Negative Urine Cocaine Screen Negative Urine Cannabinoids Negative Medications Medications Current Medications Naproxen (Naprosyn) 500 mg BID PRN PO PAIN AND/OR INFLAMMATION; Start 02/12/17 at 15:00 Ondansetron HCl (Zofran Inj) 4 mg Q6H PRN IV NAUSEA AND/OR VOMITING; Start at 15:00 Aspirin (Aspirin) 81 mg DAILY PO ; Start 02/13/17 at 09:00 Nitroglycerin (Nitroglycerin (Sl Tab) 0.4 Mg) 1 tab Q5M PRN SL CHEST PAIN; Start 02/12/17 at 15:00 Acetaminophen (Tylenol Tab) 650 mg Q6H PRN PO PAIN LEVEL 1-3 OR FEVER; Start at 15:00 Acetaminophen/ Hydrocodone Bitart ([place] (5/325)) 1 tab Q6H PRN PO PAIN LEVEL 4 -6; Start 02/12/17 at 15:00 Acetaminophen/ Hydrocodone Bitart ([place] (5/325)) 2 tab Q6H PRN PO PAIN LEVEL 7 -10; Start 02/12/17 at 15:00 Morphine Sulfate (morphine) 2 mg Q4H PRN IV PAIN LEVEL 7-10; Start 02/12/17 at 15:00 Docusate Sodium (Colace) 100 mg Q12H PRN PO CONSTIPATION; Start 02/12/17 at 15: 00 Magnesium Hydroxide (Milk Of Mag) 30 ml DAILY PRN PO CONSTIPATION; Start at 15:00 Bisacodyl (Dulcolax Supp) 10 mg DAILY PRN [place] CONSTIPATION; Start 02/12/17 at 15 :00 Famotidine (Pepcid) 20 mg Q12 PO Last administered on 02/12/17 16:59; Admin Dose 20 MG; Start 02/12/17 at 16:00 Enoxaparin Sodium 40 mg 40 mg Q24H SC Last administered on 02/12/17 17:00; Admin Dose 40 MG; Start 02/12/17 at 17:00 Sodium Chloride (NS) 1,000 ml @ 100 mls/hr Q10H IV ; Start 02/12/17 at 16:00 Amoxicillin (Amoxicillin) 500 mg Q8 PO Last administered on 02/12/17t 16:59; Admin Dose 500 MG; Start 02/12/17 at 16:00 BRODIE SNELL MD Feb 12, 2017 17:27
[2017-02-12 18:45] VITALS: TEMP 98
[2017-02-12 19:23] VITALS: PULSE 80
[2017-02-12 20:08] VITALS: BP 118/58; PULSE 69; RESP 20
[2017-02-12 20:45] LABS: CK-MB 82.3 ng/ml (0.0-2.4); TROPONIN-I 20.6 ng/ml (0.00-0.12)
[2017-02-12] MEDS ORDERED: AMOXICILLIN 500 MG CAP PO SCH (21:00)
[2017-02-12] MEDS: INDOMETHACIN 25 MG PO SCH (23:12)
[2017-02-12 23:43] VITALS: BP 113/58; RESP 19
[2017-02-13] VITALS (12 sets, daily range): BP systolic 103–128; BP diastolic 57–77; PULSE 50–70; RESP 17–19
[2017-02-13] MEDS: FAMOTIDINE 20 MG TAB PO SCH ×3 (01:00→20:39)
[2017-02-13] MEDS: SOD CHLORIDE 0.9% 1,000 ML IV SCH ×3 (02:08→22:00)
[2017-02-13] MEDS: HYDROCODONE/APAP (5/325) TAB PO PRN ×2 (02:09→18:59)
[2017-02-13 02:21] LABS: CK-MB 65.5 ng/ml (0.0-2.4); TROPONIN-I 21.8 ng/ml (0.00-0.12)
[2017-02-13] MEDS: INDOMETHACIN 25 MG PO SCH ×3 (06:24→20:41)
[2017-02-13] MEDS: AMOXICILLIN 500 MG CAP PO SCH ×3 (06:24→20:41)
[2017-02-13 07:25] LABS: BASOPHILS % 0.4 % (0.0-2.0); EOSINOPHILS # 0.1 10^3/ul (0.0-0.5); EOSINOPHILS % 1.4 % (0.0-7.0); HEMATOCRIT 38.8 % (42.0-52.0); HEMOGLOBIN 12.8 g/dl (14.0-18.0); LYMPHOCYTES # 2.1 10^3/ul (0.8-2.9); LYMPHOCYTES % 30.1 % (15.0-51.0); MEAN CORPUSCULAR HEMOGLOBIN 29.6 pg (29.0-33.0); MEAN CORPUSCULAR VOLUME 89.6 fl (82.0-101.0); MEAN PLATELET VOLUME 11.1 fl (7.4-10.4); MONOCYTE # 0.5 10^3/ul (0.3-0.9); MONOCYTES % 7.3 % (0.0-11.0); NEUTROPHILS % 60.2 % (39.0-77.0); PLATELET COUNT 212 10^3/UL (140-415); RED BLOOD COUNT 4.33 10^6/ul (4.70-6.10); RED CELL DISTRIBUTION WIDTH 12.4 % (11.5-14.5); WHITE BLOOD COUNT 7.1 10^3/ul (4.8-10.8)
--- NOTE | 2017-02-13 07:39 | CONS ---
Date/Time of Note Date/Time of Note DATE: 02/13/17 TIME: 07:37 Assessment/Plan Assessment/Plan Chief Complaint/Hosp Course 1) Symptoms and findings suggestive of chris/myocarditis 2) Febrile illness 3) incomplete data Problems: Additional Assessment/Plan 1) will order EKG 2) repeat troponins 3) ABX 4) echo pending 5) would not discharge until significantly downtrending troponins Consultation Date/Type/Reason Admit Date/Time Feb 12, 2017 at 14:31 Initial Consult Date Type of Consultation: cv 24 HR Interval Summary Free Text/Dictation ambulatory, no sob, chest pain postprandial, no distress Detailed Summary Respiratory: no complaints Cardiovascular: no complaints Gastrointestinal: no complaints Musculoskeletal: no complaints Neurologic: no complaints Exam/Review of Systems Vital Signs Vitals Vital Signs Date Time Temp Pulse Resp B/P Pulse Ox O2 Delivery O2 Flow Rate FiO2 02/13/17 04:00 50 02/13/17 03:55 97.6 19 120/70 99 02/12/17 18:45 Room Air Intake and Output 02/12/17 02/12/17 02/13/17 15:00 23:00 07:00 Intake Total 1000 ml Output Total 400 ml Balance 600 ml Exam Constitutional: alert, oriented Head: atraumatic, normocephalic Neck: supple Respiratory: clear to auscultation Cardiovascular: regular rate and rhythm Gastrointestinal: soft Musculoskeletal: nl extremities to inspection Extremities: normal pulses Results Result Diagram: 02/13/17 0659 02/12/17 1220 Results 24 hrs Laboratory Tests Test 02/12/17 12:20 02/12/17 14:46 02/12/17 19:56 02/13/17 00:38 White Blood Count 5.5 Red Blood Count 4.87 Hemoglobin 14.6 Hematocrit 43.1 Mean Corpuscular Volume 88.5 Mean Corpuscular Hemoglobin 30.0 Mean Corpuscular Hemoglobin Concent 33.9 Red Cell Distribution Width 12.3 Platelet Count 244 Mean Platelet Volume 10.8 H Neutrophils % 60.8 Lymphocytes % 26.2 Monocytes % 10.7 Eosinophils % 1.4 Basophils % 0.5 Nucleated Red Blood Cells % 0.0 Neutrophils # (Manual) 3 Lymphocytes # 1.5 Monocytes # 0.6 Eosinophils # 0.1 Basophils # 0.0 Nucleated Red Blood Cells # 0.0 Erythrocyte Sedimentation Rate 30 H Prothrombin Time 13.4 Prothrombin Time Ratio 1.0 INR International Normalized Ratio 1.02 Activated Partial Thromboplast Time 31.1 Sodium Level 142 Potassium Level 4.2 Chloride Level 102 Carbon Dioxide Level 28 Anion Gap 16 Blood Urea Nitrogen 14 Creatinine 1.12 Glucose Level 96 Calcium Level 9.7 Total Bilirubin 1.0 Direct Bilirubin 0.00 Indirect Bilirubin 1.0 Aspartate Amino Transf (AST/SGOT) 78 H Alanine Aminotransferase (ALT/SGPT) 59 Alkaline Phosphatase 64 Creatine Kinase 517 H 803 #H 648 H Creatine Kinase Index 10.3 10.2 10.1 Creatinine Kinase MB (Mass) 53.00 H 82.30 H 65.50 H Troponin I 8.720 *H 20.600 *H 21.800 *H C-Reactive Protein 5.5 H Total Protein 8.0 Albumin 4.4 Globulin 3.60 H Albumin/Globulin Ratio 1.22 Urine Color YELLOW Urine Clarity CLEAR Urine pH 6.0 Urine Specific [place] 1.009 Urine Ketones NEGATIVE Urine Nitrite NEGATIVE Urine Bilirubin NEGATIVE Urine Urobilinogen NEGATIVE Urine Leukocyte Esterase NEGATIVE Urine Hemoglobin NEGATIVE Urine Glucose NEGATIVE Urine Total Protein NEGATIVE Urine Opiates Screen Negative Urine Barbiturates Negative Urine Amphetamines Screen Negative Urine Benzodiazepines Screen Negative Urine Cocaine Screen Negative Urine Cannabinoids Negative Test 02/13/17 06:59 White Blood Count 7.1 # Red Blood Count 4.33 L Hemoglobin 12.8 L Hematocrit 38.8 L Mean Corpuscular Volume 89.6 Mean Corpuscular Hemoglobin 29.6 Mean Corpuscular Hemoglobin Concent 33.0 Red Cell Distribution Width 12.4 Platelet Count 212 Mean Platelet Volume 11.1 H Neutrophils % 60.2 Lymphocytes % 30.1 Monocytes % 7.3 Eosinophils % 1.4 Basophils % 0.4 Nucleated Red Blood Cells % 0.0 Neutrophils # (Manual) 4 Lymphocytes # 2.1 Monocytes # 0.5 Eosinophils # 0.1 Basophils # 0.0 Nucleated Red Blood Cells # 0.0 Medications Medications Current Medications Ondansetron HCl (Zofran Inj) 4 mg Q6H PRN IV NAUSEA AND/OR VOMITING; Start at 15:00 Aspirin (Aspirin) 81 mg DAILY PO ; Start 02/13/17 at 09:00 Nitroglycerin (Nitroglycerin (Sl Tab) 0.4 Mg) 1 tab Q5M PRN SL CHEST PAIN; Start 02/12/17 at 15:00 Acetaminophen (Tylenol Tab) 650 mg Q6H PRN PO PAIN LEVEL 1-3 OR FEVER; Start at 15:00 Acetaminophen/ Hydrocodone Bitart ([place] (5/325)) 1 tab Q6H PRN PO PAIN LEVEL 4 -6 Last administered on 02/13/17 02:09; Admin Dose 1 TAB; Start 02/12/17 at 15: 00 Acetaminophen/ Hydrocodone Bitart ([place] (5/325)) 2 tab Q6H PRN PO PAIN LEVEL 7 -10; Start 02/12/17 at 15:00 Morphine Sulfate (morphine) 2 mg Q4H PRN IV PAIN LEVEL 7-10; Start 02/12/17 at 15:00 Docusate Sodium (Colace) 100 mg Q12H PRN PO CONSTIPATION; Start 02/12/17 at 15: 00 Magnesium Hydroxide (Milk Of Mag) 30 ml DAILY PRN PO CONSTIPATION; Start at 15:00 Bisacodyl (Dulcolax Supp) 10 mg DAILY PRN [place] CONSTIPATION; Start 02/12/17 at 15 :00 Famotidine (Pepcid) 20 mg Q12 PO Last administered on 02/12/17 16:59; Admin Dose 20 MG; Start 02/12/17 at 16:00 Enoxaparin Sodium 40 mg 40 mg Q24H SC Last administered on 02/12/17 17:00; Admin Dose 40 MG; Start 02/12/17 at 17:00 Sodium Chloride (NS) 1,000 ml @ 100 mls/hr Q10H IV Last administered on 02:08; Admin Dose 100 MLS/HR; Start 02/12/17 at 16:00 Amoxicillin (Amoxicillin) 500 mg Q8 PO Last administered on 02/13/17 06:24; Admin Dose 500 MG; Start 02/12/17 at 16:00 Indomethacin (Indocin) 25 mg Q8 PO Last administered on 02/13/17 06:24; Admin Dose 25 MG; Start 02/12/17 at 22:00 MARCELA ENGLE MD Feb 13, 2017 07:39
[2017-02-13 07:49] LABS: ALBUMIN 3.7 g/dl (3.3-4.9); ALBUMIN/GLOBULIN RATIO 1.27; BILIRUBIN,INDIRECT 0.7 mg/dl (0-1.1); BILIRUBIN,TOTAL 0.7 mg/dl (0.2-1.3); CALCIUM 8.9 mg/dl (8.4-10.2); CHOL/HDL RATIO 3.1 RATIO; CREATININE 1.19 mg/dl (0.61-1.24); TOTAL PROTEIN 6.6 g/dl (6.1-8.1)
[2017-02-13] MEDS: ASPIRIN 81 MG TAB PO SCH (08:47)
[2017-02-13 11:05] LABS: CK-MB 90.8 ng/ml (0.0-2.4)
--- NOTE | 2017-02-13 12:34 | PN ---
Date/Time of Note Date/Time of Note DATE: 02/13/17 TIME: 12:30 Assessment/Plan VTE Prophylaxis VTE Prophylaxis Intervention: LMWH Lines/Catheters IV Catheter Type (from Nrs): Peripheral IV Assessment/Plan Assessment/Plan 26-year-old male with: 1. Chest pain, elevated troponin in setting of sore throat and likely viral upper respiratory infection, still on antibiotics, resolved chills and fevers. Patient likely has pericarditis and or myocarditis, ESR is slightly elevated. EKG with diffuse ST changes Cardiac enzymes still trending up, latest one with troponin of 28, 2D echocardiogram ordered Appreciate cardiology recommendations, patient on NSAIDs for pain control and anti-inflammation and close monitoring. White blood cell count within normal, still to finish his course of amoxicillin CTA chest only showing findings of bronchial inflammation, no pulmonary embolus or pericardial effusion 2. Sore throat, resolved, currently finishing a 10 day course of amoxicillin, he has 5 more days. 3. Recent diagnosis of gonorrhea, status post treatment 01/31. Prophylaxis: Lovenox for DVT prophylaxis, Pepcid for GI prophylaxis Disposition: Follow-up 2D echocardiogram results, will keep trending cardiac enzymes until peak Subjective 24 Hr Interval Summary Free Text/Dictation Patient denies any chest pains currently, respiratory status stable. Tolerating p.o. well. Afebrile, white blood cell count within normal. His troponins are still trending up, appreciate recommendations from cardiology , continue NSAIDs, follow-up 2D echocardiogram results. Exam/Review of Systems Vital Signs Vitals Vital Signs Date Time Temp Pulse Resp B/P Pulse Ox O2 Delivery O2 Flow Rate FiO2 02/13/17 12:13 97.7 68 18 128/60 95 02/12/17 18:45 Room Air Intake and Output 02/12/17 02/12/17 02/13/17 15:00 23:00 07:00 Intake Total 1000 ml Output Total 400 ml Balance 600 ml Exam Constitutional: alert, oriented, well developed Respiratory: clear to auscultation, normal air movement Cardiovascular: nl pulses, regular rate and rhythm Gastrointestinal: non-tender, soft Musculoskeletal: nl extremities to inspection, nl gait and stance Extremities: normal pulses, other (No edema, clubbing or cyanosis) Neurological: TRACK RIDER II-XII intact, nl mental status, nl speech, nl strength Results Result Diagram: 02/13/17 0659 02/13/17 0659 Results 24 hrs Laboratory Tests Test 02/12/17 14:46 02/12/17 19:56 02/13/17 00:38 02/13/17 06:59 Urine Color YELLOW Urine Clarity CLEAR Urine pH 6.0 Urine Specific [place] 1.009 Urine Ketones NEGATIVE Urine Nitrite NEGATIVE Urine Bilirubin NEGATIVE Urine Urobilinogen NEGATIVE Urine Leukocyte Esterase NEGATIVE Urine Hemoglobin NEGATIVE Urine Glucose NEGATIVE Urine Total Protein NEGATIVE Urine Opiates Screen Negative Urine Barbiturates Negative Urine Amphetamines Screen Negative Urine Benzodiazepines Screen Negative Urine Cocaine Screen Negative Urine Cannabinoids Negative Creatine Kinase 803 #H 648 H Creatine Kinase Index 10.2 10.1 Creatinine Kinase MB (Mass) 82.30 H 65.50 H Troponin I 20.600 *H 21.800 *H White Blood Count 7.1 # Red Blood Count 4.33 L Hemoglobin 12.8 L Hematocrit 38.8 L Mean Corpuscular Volume 89.6 Mean Corpuscular Hemoglobin 29.6 Mean Corpuscular Hemoglobin Concent 33.0 Red Cell Distribution Width 12.4 Platelet Count 212 Mean Platelet Volume 11.1 H Neutrophils % 60.2 Lymphocytes % 30.1 Monocytes % 7.3 Eosinophils % 1.4 Basophils % 0.4 Nucleated Red Blood Cells % 0.0 Neutrophils # (Manual) 4 Lymphocytes # 2.1 Monocytes # 0.5 Eosinophils # 0.1 Basophils # 0.0 Nucleated Red Blood Cells # 0.0 Sodium Level 140 Potassium Level 4.0 Chloride Level 106 Carbon Dioxide Level 28 Anion Gap 10 # Blood Urea Nitrogen 13 Creatinine 1.19 Glucose Level 109 Calcium Level 8.9 Magnesium Level 2.0 Total Bilirubin 0.7 Direct Bilirubin 0.00 Indirect Bilirubin 0.7 Aspartate Amino Transf (AST/SGOT) 137 #H Alanine Aminotransferase (ALT/SGPT) 74 H Alkaline Phosphatase 63 Total Protein 6.6 # Albumin 3.7 Globulin 2.90 Albumin/Globulin Ratio 1.27 Triglycerides Level 122 Cholesterol Level 106 LDL Cholesterol, Calculated 48 HDL Cholesterol 34 Cholesterol/HDL Ratio 3.1 Test 02/13/17 09:44 Creatine Kinase 803 H Creatine Kinase Index 11.3 Creatinine Kinase MB (Mass) 90.80 H Troponin I 28.000 *H Medications Medications Current Medications Ondansetron HCl (Zofran Inj) 4 mg Q6H PRN IV NAUSEA AND/OR VOMITING; Start at 15:00 Aspirin (Aspirin) 81 mg DAILY PO Last administered on 02/13/17 08:47; Admin Dose 81 MG; Start 02/13/17 at 09:00 Nitroglycerin (Nitroglycerin (Sl Tab) 0.4 Mg) 1 tab Q5M PRN SL CHEST PAIN; Start 02/12/17 at 15:00 Acetaminophen (Tylenol Tab) 650 mg Q6H PRN PO PAIN LEVEL 1-3 OR FEVER; Start at 15:00 Acetaminophen/ Hydrocodone Bitart ([place] (5/325)) 1 tab Q6H PRN PO PAIN LEVEL 4 -6 Last administered on 02/13/17 02:09; Admin Dose 1 TAB; Start 02/12/17 at 15: 00 Acetaminophen/ Hydrocodone Bitart ([place] (5/325)) 2 tab Q6H PRN PO PAIN LEVEL 7 -10; Start 02/12/17 at 15:00 Morphine Sulfate (morphine) 2 mg Q4H PRN IV PAIN LEVEL 7-10; Start 02/12/17 at 15:00 Docusate Sodium (Colace) 100 mg Q12H PRN PO CONSTIPATION; Start 02/12/17 at 15: 00 Magnesium Hydroxide (Milk Of Mag) 30 ml DAILY PRN PO CONSTIPATION; Start at 15:00 Bisacodyl (Dulcolax Supp) 10 mg DAILY PRN [place] CONSTIPATION; Start 02/12/17 at 15 :00 Famotidine (Pepcid) 20 mg Q12 PO Last administered on 02/13/17 08:46; Admin Dose 20 MG; Start 02/12/17 at 16:00 Enoxaparin Sodium 40 mg 40 mg Q24H SC Last administered on 02/12/17 17:00; Admin Dose 40 MG; Start 02/12/17 at 17:00 Sodium Chloride (NS) 1,000 ml @ 100 mls/hr Q10H IV Last administered on 02:08; Admin Dose 100 MLS/HR; Start 02/12/17 at 16:00 Amoxicillin (Amoxicillin) 500 mg Q8 PO Last administered on 02/13/17 06:24; Admin Dose 500 MG; Start 02/12/17 at 16:00 Indomethacin (Indocin) 25 mg Q8 PO Last administered on 02/13/17 06:24; Admin Dose 25 MG; Start 02/12/17 at 22:00 AMERICA XIE Feb 13, 2017 12:34
[2017-02-13] MEDS: ENOXAPARIN 40 MG/0.4 ML SYG SC SCH (18:57)
[2017-02-14] VITALS (7 sets, daily range): BP systolic 106–121; BP diastolic 57–65; PULSE 59–68; RESP 19–20
[2017-02-14] MEDS: AMOXICILLIN 500 MG CAP PO SCH (05:47)
[2017-02-14] MEDS: INDOMETHACIN 25 MG PO SCH (05:47)
--- NOTE | 2017-02-14 07:21 | RADRPT ---
Echocardiogram Report Patient Name: ROSALINO VILLEGAS Gender: Male Date: 1990 Study Date: 13-Feb-2017 Steward/Stewardess Room: MANUELA GOLDEN Location: 5538 Ref. Physician: KENZIE XIE Quality: Good Procedures: Transthoracic echocardiogram with complete 2D, M-Mode, and doppler examination. Indications: Pericarditis. 2D/M Mode Doppler Measurement Value Normal Ranges Measurement Value Normal Ranges LVIDd 2D 4.8 3.5 - 5.6 cm ANU Vmax 2.2 cm2 LVIDs 2D 4.0 2.1 - 4.1 cm ANU VTI 2.2 cm2 LVPWd 2D 1.0 0.6 - 1.1 cm AV Peak Baljinder 1.2 m/sec IVSd 2D 1.0 0.6 - 1.1 cm AV Peak PG 6.0 mmHg AoR Diam 2D 3.7 2.0 - 3.7 cm LVOT Peak Baljinder 0.8 m/sec EDV 2D 106.1 cm3 LVOT Peak PG 2.6 mmHg ESV 2D 63.6 cm3 MV E Peak Baljinder 0.9 m/sec LA Dimen 2D 3.1 2.3 - 4.0 cm MV A Peak Baljinder 0.4 m/sec LVOT Diam 2.1 cm MV E/A 2.1 MV Decel Time 281 msec MV Decel [place] 3 MV E/A 2.1 TR Peak Baljinder 1.9 m/sec TR Peak PG 14.9 mmHg RVSP 15.0 mmHg Findings Left Ventricle: Lower limits of normal systolic function. Normal left ventricular cavity size. Normal left ventricular wall thickness. Ejection fraction is visually estimated at 50 %. Tissue Doppler/Mitral Doppler indices are consistent with impaired relaxation (Stage I diastolic dysfunction). Right Ventricle: Normal right ventricular size. Normal right ventricular systolic function. Left Atrium: The left atrium is normal in size. Right Atrium: The right atrium is normal in size. Mitral Valve: Normal appearance and function of the mitral valve with trace physiologic regurgitation. Aortic Valve: Normal appearance of the aortic valve. No significant aortic stenosis or insufficiency. Tricuspid Valve: Normal appearance and function of the tricuspid valve with trace physiologic regurgitation. Normal right ventricular systolic pressure. Estimated peak PA systolic pressure 23 mmHg. Pulmonic Valve: Normal pulmonic valve appearance. Pericardium: Normal pericardium with no significant pericardial effusion. Aorta: Normal aortic root. IVC: Normal size and normal respiratory collapse consistent with normal right atrial pressure. Conclusions 1.Lower limits of normal systolic function. Normal left ventricular cavity size. Normal left ventricular wall thickness. Ejection fraction is visually estimated at 50 %. Tissue Doppler/Mitral Doppler indices are consistent with impaired relaxation (Stage I diastolic dysfunction). 2.Normal right ventricular size. Normal right ventricular systolic function. 3.The left atrium is normal in size. 4.The right atrium is normal in size. 5.Normal appearance and function of the mitral valve with trace physiologic regurgitation. 6.Normal appearance of the aortic valve. No significant aortic stenosis or insufficiency. 7.Normal appearance and function of the tricuspid valve with trace physiologic regurgitation. Normal right ventricular systolic pressure. Estimated peak PA systolic pressure 23 mmHg. 8.Normal size and normal respiratory collapse consistent with normal right atrial pressure. Electronically Signed By: Darian Morales 14-Feb-2017 07:21:11 -0700 Patient Name: ROSALINO VILLEGAS Study Date: 13-Feb-2017 [id number]
--- NOTE | 2017-02-14 07:33 | CONS ---
Date/Time of Note Date/Time of Note DATE: 02/14/17 TIME: 07:30 Assessment/Plan Assessment/Plan Chief Complaint/Hosp Course 1) Symptoms and findings suggestive of chris/myocarditis 2) Febrile illness 3) EKG consistent with acute pericarditis 4) Borderline LV function with ventricular contractility suggestive of myocarditis Problems: Additional Assessment/Plan 1) beta marisela 2) will eventually start NOE 3) repeat troponin and EKG 4) recommend not to dc until free of symptoms and significantly downtrending troponin Consultation Date/Type/Reason Admit Date/Time Feb 12, 2017 at 14:31 Type of Consultation: cv 24 HR Interval Summary Free Text/Dictation mild localized persistent chest pain worse after food intake, no sob, no distress Detailed Summary Cardiovascular: chest pain Gastrointestinal: no complaints Musculoskeletal: no complaints Skin: no complaints Neurologic: no complaints Endocrine: no complaints Exam/Review of Systems Vital Signs Vitals Vital Signs Date Time Temp Pulse Resp B/P Pulse Ox O2 Delivery O2 Flow Rate FiO2 02/14/17 04:29 97.6 68 19 106/57 98 02/12/17 18:45 Room Air Intake and Output 02/13/17 02/13/17 02/14/17 15:00 23:00 07:00 Intake Total 1000 ml 1800 ml 100 ml Balance 1000 ml 1800 ml 100 ml Exam Constitutional: alert, oriented Head: atraumatic, normocephalic Neck: supple Respiratory: clear to auscultation Cardiovascular: regular rate and rhythm Gastrointestinal: soft Musculoskeletal: nl extremities to inspection Extremities: normal pulses Results Result Diagram: 02/13/17 0659 02/13/17 0659 Results 24 hrs Laboratory Tests Test 02/13/17 09:44 Creatine Kinase 803 H Creatine Kinase Index 11.3 Creatinine Kinase MB (Mass) 90.80 H Troponin I 28.000 *H Medications Medications Current Medications Ondansetron HCl (Zofran Inj) 4 mg Q6H PRN IV NAUSEA AND/OR VOMITING; Start at 15:00 Aspirin (Aspirin) 81 mg DAILY PO Last administered on 02/13/17t 08:47; Admin Dose 81 MG; Start 02/13/17 at 09:00 Nitroglycerin (Nitroglycerin (Sl Tab) 0.4 Mg) 1 tab Q5M PRN SL CHEST PAIN; Start 02/12/17 at 15:00 Acetaminophen (Tylenol Tab) 650 mg Q6H PRN PO PAIN LEVEL 1-3 OR FEVER; Start at 15:00 Acetaminophen/ Hydrocodone Bitart ([place] (5/325)) 1 tab Q6H PRN PO PAIN LEVEL 4 -6 Last administered on 02/13/17 18:59; Admin Dose 1 TAB; Start 02/12/17 at 15: 00 Acetaminophen/ Hydrocodone Bitart ([place] (5/325)) 2 tab Q6H PRN PO PAIN LEVEL 7 -10; Start 02/12/17 at 15:00 Morphine Sulfate (morphine) 2 mg Q4H PRN IV PAIN LEVEL 7-10; Start 02/12/17 at 15:00 Docusate Sodium (Colace) 100 mg Q12H PRN PO CONSTIPATION; Start 02/12/17 at 15: 00 Magnesium Hydroxide (Milk Of Mag) 30 ml DAILY PRN PO CONSTIPATION; Start at 15:00 Bisacodyl (Dulcolax Supp) 10 mg DAILY PRN [place] CONSTIPATION; Start 02/12/17 at 15 :00 Famotidine (Pepcid) 20 mg Q12 PO Last administered on 02/13/17 20:39; Admin Dose 20 MG; Start 02/12/17 at 16:00 Enoxaparin Sodium 40 mg 40 mg Q24H SC Last administered on 02/13/17 18:57; Admin Dose 40 MG; Start 02/12/17 at 17:00 Sodium Chloride (NS) 1,000 ml @ 100 mls/hr Q10H IV Last administered on 22:00; Admin Dose 100 MLS/HR; Start 02/12/17 at 16:00 Amoxicillin (Amoxicillin) 500 mg Q8 PO Last administered on 02/14/17 05:47; Admin Dose 500 MG; Start 02/12/17 at 16:00 Indomethacin (Indocin) 25 mg Q8 PO Last administered on 02/14/17 05:47; Admin Dose 25 MG; Start 02/12/17 at 22:00 MARCELA ENGLE MD Feb 14, 2017 07:33
[2017-02-14 07:39] LABS: BASOPHILS % 0.5 % (0.0-2.0); EOSINOPHILS # 0.2 10^3/ul (0.0-0.5); EOSINOPHILS % 3.2 % (0.0-7.0); HEMATOCRIT 39.6 % (42.0-52.0); HEMOGLOBIN 13.1 g/dl (14.0-18.0); LYMPHOCYTES # 2.3 10^3/ul (0.8-2.9); LYMPHOCYTES % 34.3 % (15.0-51.0); MEAN CORPUSCULAR HEMOGLOBIN 29.5 pg (29.0-33.0); MEAN CORPUSCULAR HGB CONC 33.1 g/dl (32.0-37.0); MEAN CORPUSCULAR VOLUME 89.2 fl (82.0-101.0); MONOCYTE # 0.6 10^3/ul (0.3-0.9); MONOCYTES % 9.5 % (0.0-11.0); NEUTROPHILS % 51.9 % (39.0-77.0); PLATELET COUNT 240 10^3/UL (140-415); RED BLOOD COUNT 4.44 10^6/ul (4.70-6.10); RED CELL DISTRIBUTION WIDTH 12.3 % (11.5-14.5); WHITE BLOOD COUNT 6.6 10^3/ul (4.8-10.8)
[2017-02-14] MEDS: SOD CHLORIDE 0.9% 1,000 ML IV SCH (08:25)
[2017-02-14] MEDS: FAMOTIDINE 20 MG TAB PO SCH (08:25)
[2017-02-14] MEDS: ASPIRIN 81 MG TAB PO SCH (08:25)
[2017-02-14 08:31] LABS: MAGNESIUM 1.9 mg/dl (1.7-2.5); PHOSPHORUS 4.3 mg/dl (2.5-4.9)
[2017-02-14 08:34] LABS: ALBUMIN 3.6 g/dl (3.3-4.9); ALBUMIN/GLOBULIN RATIO 1.12; BILIRUBIN,INDIRECT 0.3 mg/dl (0-1.1); BILIRUBIN,TOTAL 0.3 mg/dl (0.2-1.3); CALCIUM 9.1 mg/dl (8.4-10.2); CREATININE 1.06 mg/dl (0.61-1.24); POTASSIUM 4.4 mmol/L (3.5-5.1); TOTAL PROTEIN 6.8 g/dl (6.1-8.1)
[2017-02-14] MEDS ORDERED: METOPROLOL 25 MG TAB PO SCH (09:00)
--- NOTE | 2017-02-14 10:59 | PN ---
Date/Time of Note Date/Time of Note DATE: 02/14/17 TIME: 10:43 Assessment/Plan VTE Prophylaxis VTE Prophylaxis Intervention: LMWH Lines/Catheters IV [facility]ter Type (from [facility] Peripheral IV Urinary Cath still in place: No Assessment/Plan Assessment/Plan 26-year-old male with: 1. Chest pain, elevated troponin in setting of sore throat and likely viral upper respiratory infection, still on antibiotics, resolved chills and fevers. Patient likely has pericarditis/myocarditis, ESR is slightly elevated. EKG with diffuse ST changes Cardiac enzymes now trending down to 21, 2D echocardiogram with preserved ejection fraction, EF of 50%. No valvular abnormalities Appreciate cardiology recommendations, patient on NSAIDs for pain control and anti-inflammation and close monitoring. White blood cell count within normal, still to finish his course of amoxicillin CTA chest only showing findings of bronchial inflammation, no pulmonary embolus or pericardial effusion 2. Sore throat, resolved, currently finishing a 10 day course of amoxicillin, he has 5 more days. 3. Recent diagnosis of gonorrhea, status post treatment 01/31. Clarify patient he has been tested for HIV given his recent multiple episodes of infection that he is complaining of. Prophylaxis: Lovenox for DVT prophylaxis, Pepcid for GI prophylaxis Disposition: Keep trending cardiac enzymes seems to have peaked so far, follow- up cardiology recommendations for discharge planning hopefully in the next 24 hours. However patient has decided to leave AMA. Subjective 24 Hr Interval Summary Free Text/Dictation Patient currently with no complaints, he denies chest pain, he is afebrile, white blood cell count is within normal. He did talk to cardiology earlier today and apparently had his questions answered. Troponin down to 21, and echocardiogram stable. Still has some elevation of ST segments on telemetry. When I went in the room to examine him, at first he told me he was on a phone interview, when I came back for an exam the patient apparently called in the meantime and wants to leave AGAINST MEDICAL ADVICE. When I asked him why or where he is going, he told me to "a hospital he has arranged" he is refusing to disclose where he is going. I have asked him to finish the course of amoxicillin he has been on, he does have the pills at home already and also to use ibuprofen or Naprosyn he was apparently prescribed before since he will not get prescriptions when leaving AGAINST MEDICAL ADVICE. He told me he will get the medications at the hospital he is going to... Exam/Review of Systems Vital Signs Vitals Vital Signs Date Time Temp Pulse Resp B/P Pulse Ox O2 Delivery O2 Flow Rate FiO2 02/14/17 08:29 59 02/14/17 08:00 97.8 20 107/63 98 02/12/17 18:45 Room Air Intake and Output 02/13/17 02/13/17 02/14/17 15:00 23:00 07:00 Intake Total 1000 ml 1800 ml 100 ml Balance 1000 ml 1800 ml 100 ml Exam Constitutional: alert, oriented, well developed Respiratory: clear to auscultation, normal air movement Cardiovascular: nl pulses, regular rate and rhythm Gastrointestinal: non-tender, soft Musculoskeletal: nl extremities to inspection, other (No edema, clubbing or cyanosis) Extremities: normal pulses Neurological: BUSINESS SERVICES COORDINATOR II-XII intact, nl mental status, nl speech, nl strength Results Result Diagram: 02/14/17 0706 02/14/17 0705 Results 24 hrs Laboratory Tests Test 02/14/17 07:03 02/14/17 07:05 02/14/17 07:06 Phosphorus Level 4.3 Magnesium Level 1.9 Sodium Level 142 Potassium Level 4.4 Chloride Level 106 Carbon Dioxide Level 27 Anion Gap 13 Blood Urea Nitrogen 11 Creatinine 1.06 Glucose Level 86 Calcium Level 9.1 Total Bilirubin 0.3 Direct Bilirubin 0.00 Indirect Bilirubin 0.3 Aspartate Amino Transf (AST/SGOT) 97 H Alanine Aminotransferase (ALT/SGPT) 90 H Alkaline Phosphatase 64 Troponin I 21.400 *H Total Protein 6.8 Albumin 3.6 Globulin 3.20 Albumin/Globulin Ratio 1.12 White Blood Count 6.6 Red Blood Count 4.44 L Hemoglobin 13.1 L Hematocrit 39.6 L Mean Corpuscular Volume 89.2 Mean Corpuscular Hemoglobin 29.5 Mean Corpuscular Hemoglobin Concent 33.1 Red Cell Distribution Width 12.3 Platelet Count 240 Mean Platelet Volume 11.0 H Neutrophils % 51.9 Lymphocytes % 34.3 Monocytes % 9.5 Eosinophils % 3.2 Basophils % 0.5 Nucleated Red Blood Cells % 0.0 Neutrophils # (Manual) 3 Lymphocytes # 2.3 Monocytes # 0.6 Eosinophils # 0.2 Basophils # 0.0 Nucleated Red Blood Cells # 0.0 Medications Medications Current Medications Ondansetron HCl (Zofran Inj) 4 mg Q6H PRN IV NAUSEA AND/OR VOMITING; Start at 15:00 Aspirin (Aspirin) 81 mg DAILY PO Last administered on 02/14/17 08:25; Admin Dose 81 MG; Start 02/13/17 at 09:00 Nitroglycerin (Nitroglycerin (Sl Tab) 0.4 Mg) 1 tab Q5M PRN SL CHEST PAIN; Start 02/12/17 at 15:00 Acetaminophen (Tylenol Tab) 650 mg Q6H PRN PO PAIN LEVEL 1-3 OR FEVER; Start at 15:00 Acetaminophen/ Hydrocodone Bitart ([place] (5/325)) 1 tab Q6H PRN PO PAIN LEVEL 4 -6 Last administered on 02/13/17 18:59; Admin Dose 1 TAB; Start 02/12/17 at 15: 00 Acetaminophen/ Hydrocodone Bitart ([place] (5/325)) 2 tab Q6H PRN PO PAIN LEVEL 7 -10; Start 02/12/17 at 15:00 Morphine Sulfate (morphine) 2 mg Q4H PRN IV PAIN LEVEL 7-10; Start 02/12/17 at 15:00 Docusate Sodium (Colace) 100 mg Q12H PRN PO CONSTIPATION; Start 02/12/17 at 15: 00 Magnesium Hydroxide (Milk Of Mag) 30 ml DAILY PRN PO CONSTIPATION; Start at 15:00 Bisacodyl (Dulcolax Supp) 10 mg DAILY PRN [place] CONSTIPATION; Start 02/12/17 at 15 :00 Famotidine (Pepcid) 20 mg Q12 PO Last administered on 02/14/17 08:25; Admin Dose 20 MG; Start 02/12/17 at 16:00 Enoxaparin Sodium 40 mg 40 mg Q24H SC Last administered on 02/13/17 18:57; Admin Dose 40 MG; Start 02/12/17 at 17:00 Sodium Chloride (NS) 1,000 ml @ 100 mls/hr Q10H IV Last administered on 08:25; Admin Dose 100 MLS/HR; Start 02/12/17 at 16:00 Amoxicillin (Amoxicillin) 500 mg Q8 PO Last administered on 8/24/17at 05:47; Admin Dose 500 MG; Start 02/12/17 at 16:00 Indomethacin (Indocin) 25 mg Q8 PO Last administered on 02/14/17t 05:47; Admin Dose 25 MG; Start 02/12/17 at 22:00 Metoprolol Tartrate (Lopressor) 12.5 mg BID PO ; Start 02/14/17 at 09:00 Procedures Procedures Echocardiogram Report Patient Name: ROSALINO VILLEGAS Gender: Male Date: 1990 Study Date: 13-Feb-2017 Shipping Clerk Packing: MANUELA GOLDEN Location: [id number] Ref. Physician: KENZIE XIE Quality: Good Procedures: Transthoracic echocardiogram with complete 2D, M-Mode, and doppler examination. Indications: Pericarditis. 2D/M Mode Doppler Measurement Value Normal Ranges Measurement Value Normal Ranges LVIDd 2D 4.8 3.5 - 5.6 cm ANU Vmax 2.2 cm2 LVIDs 2D 4.0 2.1 - 4.1 cm ANU VTI 2.2 cm2 LVPWd 2D 1.0 0.6 - 1.1 cm AV Peak Baljinder 1.2 m/sec IVSd 2D 1.0 0.6 - 1.1 cm AV Peak PG 6.0 mmHg AoR Diam 2D 3.7 2.0 - 3.7 cm LVOT Peak Baljinder 0.8 m/sec EDV 2D 106.1 cm3 LVOT Peak PG 2.6 mmHg ESV 2D 63.6 cm3 MV E Peak Baljinder 0.9 m/sec LA Dimen 2D 3.1 2.3 - 4.0 cm MV A Peak Baljinder 0.4 m/sec LVOT Diam 2.1 cm MV E/A 2.1 MV Decel Time 281 msec MV Decel Morton 3 MV E/A 2.1 TR Peak Baljinder 1.9 m/sec TR Peak PG 14.9 mmHg RVSP 15.0 mmHg Findings Left Ventricle: Lower limits of normal systolic function. Normal left ventricular cavity size. Normal left ventricular wall thickness. Ejection fraction is visually estimated at 50 %. Tissue Doppler/Mitral Doppler indices are consistent with impaired relaxation (Stage I diastolic dysfunction). Right Ventricle: Normal right ventricular size. Normal right ventricular systolic function. Left Atrium: The left atrium is normal in size. Right Atrium: The right atrium is normal in size. Mitral Valve: Normal appearance and function of the mitral valve with trace physiologic regurgitation. Aortic Valve: Normal appearance of the aortic valve. No significant aortic stenosis or insufficiency. Tricuspid Valve: Normal appearance and function of the tricuspid valve with trace physiologic regurgitation. Normal right ventricular systolic pressure. Estimated peak PA systolic pressure 23 mmHg. Pulmonic Valve: Normal pulmonic valve appearance. Pericardium: Normal pericardium with no significant pericardial effusion. Aorta: Normal aortic root. IVC: Normal size and normal respiratory collapse consistent with normal right atrial pressure. Conclusions 1. Lower limits of normal systolic function. Normal left ventricular cavity size. Normal left ventricular wall thickness. Ejection fraction is visually estimated at 50 %. Tissue Doppler/Mitral Doppler indices are consistent with impaired relaxation (Stage I diastolic dysfunction). 2. Normal right ventricular size. Normal right ventricular systolic function. 3. The left atrium is normal in size. 4. The right atrium is normal in size. 5. Normal appearance and function of the mitral valve with trace physiologic regurgitation. 6. Normal appearance of the aortic valve. No significant aortic stenosis or insufficiency. 7. Normal appearance and function of the tricuspid valve with trace physiologic regurgitation. Normal right ventricular systolic pressure. Estimated peak PA systolic pressure 23 mmHg. 8. Normal size and normal respiratory collapse consistent with normal right atrial pressure. Electronically Signed By: Darian Morales 14-Feb-2017 07:21:11 -0700 AMERICA XIE Feb 14, 2017 10:53
--- NOTE | 2017-02-15 07:53 | EN ---
Date/Time of Note Date/Time of Note DATE: 02/15/17 TIME: 07:49 Event Note Cardiology Cardiology Event Note I find patient this morning having left again medical advise. I was paged yesterday morning that patient wishes to talk to me. I spend 25 minutes on the phone with him explaining him all details of his care, current therapy and future therapeutic options and plans. Patients agreed and expressed that he he is doing high intensity sports and needs to go back into this radha. I warned him from high level exercise at this time and in the near future. I planned to proceed with a CT coronary angiogram though patient is not present at this time. MARCELA ENGLE MD Feb 15, 2017 07:53
--- NOTE | 2017-02-15 17:09 | RADRPT ---
Vent Rate: 61 bpm RR Interval: 0 msec VT Interval: 138 msec QRS Duration: 100 msec QT Interval: 394 msec QTC Interval: 396 msec P-R-T [place]: 72 - 48 - 58 degrees Normal sinus rhythm with sinus arrhythmia RSR apos; orattern in V1 suggests right ventricular conduction delay Possible Acute pericarditis Abnormal ECG Electronically Signed By: Radhames Pinto [id number]
== END 2017-02-14 12:34 | disposition left against medical advice (07) | DRG 315 ==
LOC: FTE 10:58 → MS4 14:31
PROVIDERS: ADMIT Internal Medicine; ATTEND Internal Medicine
DX: I51.4 Myocarditis, unspecified (principal); I30.9 Acute pericarditis, unspecified; J06.9 Acute upper respiratory infection, unspecified; Z86.19 Personal history of other infectious and parasitic diseases
CPT/HCPCS: 36415; 71010; 71275; 80053; 80061; 80307; 81003; 82550; 82553; 83735; 84100; 84484; 85025; 85610; 85651; 85730; 86140; 87040; 87086; 93005; 93306; 96372; 96374; J1650; J1885; J2270; J7030; Q9967